=== PATIENT | male | born 1935 | race Two or more races ===

== ENCOUNTER 2017-02-15 16:20 | Emergency (ER) | payer MEDICARE, BC ==
--- NOTE | 2017-02-23 18:05 | ER ---
ADMIT: 02/15/2017 RM/LOC: ER [facility] MR#: [id number] [address] [place], [place] [id number] ROBBIE VIEYRA [address] [place] [address] Emergency Room Report SEX: M AGE: 81 : 1935 DATE: 02/15/2017 CHIEF COMPLAINT: Head injury. HISTORY OF PRESENT ILLNESS: An 81-year-old male, who presents with a laceration just above his left eye. States he was working on a car, and he was underneath that trying to install a starter when he dropped it and fell on his head. Denies any pain at this time. No loss of consciousness. Remembers the event. No headache, neck pain, change in vision, nausea, or vomiting. He is on Plavix secondary to some heart surgery. He is unsure exactly what that is. He has a large incision across his chest. COURSE IN THE EMERGENCY ROOM: The patient was seen and examined. GENERAL: Afebrile, nontoxic, in no acute distress. He is alert. HEENT: Head, he does have a 1.5 cm irregular laceration above the left eye. Eyes equal and reactive. Extraocular muscles are intact. ENT inspection is normal. NEURO: He is alert and oriented. Sensation and motor are equal in upper and lower extremities. CHEST: Nontender. Heart and breath sounds are normal. PROCEDURE: Repair of laceration. Repair of 1 cm laceration to the left eye, irregular. It was thoroughly cleaned with Ultradex, anesthetized with 5 mL of lidocaine with epinephrine, irrigated with saline, explored to the base. No obvious foreign bodies identified. Repaired with three 5-0 Ethilon sutures. Wound edges were well everted. Head CT was also obtained, negative for anything acute. IMPRESSION: 1. Laceration, superior to the left eye. 2. Anticoagulation, chronic. DISPOSITION: The patient is discharged to follow up primary care in 7 days to have the sutures removed. Keep clean and dry. Monitor for any signs of infection. Follow up sooner as needed. Tylenol as needed for pain. Apply ice as needed for pain. Questions sought and answered to the best of my ability and to the patient's satisfaction. Discharged home in stable condition. NASRA Avalos / Tristan Powell MD / [place] JOB #: [id number] CC: Tristan Powell MD, Attending Physician UNKNOWN, Family Physician
== END 2017-02-15 17:50 | disposition home or self-care (01) ==
LOC: ER 16:20
PROC: 0HQ1XZZ Repair Face Skin, External Approach (ICD-10-PCS; principal; 2017-02-15)
DX: S01.81XA Laceration without foreign body of other part of head, initial encounter (principal); I10 Essential (primary) hypertension; D68.318 Other hemorrhagic disorder due to intrinsic circulating anticoagulants, antibodies, or inhibitors; E78.5 Hyperlipidemia, unspecified; E11.9 Type 2 diabetes mellitus without complications; Z79.899 Other long term (current) drug therapy; Z79.01 Long term (current) use of anticoagulants; Z79.4 Long term (current) use of insulin; W22.8XXA Striking against or struck by other objects, initial encounter; Y92.009 Unspecified place in unspecified non-institutional (private) residence as the place of occurrence of the external cause